=== PATIENT | female | born 1995 | race Caucasian/White ===

== ENCOUNTER 2019-01-13 17:39 | Emergency (ER) | payer OTHER ==
--- NOTE | 2019-01-13 17:58 | EDPHY ---
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 She describes laying in her bed , hyperventilating, carpal pedal spasms. No loss of consciousness. No fall. No trauma. She subsequently told her boss at work about this, he requested a note stating that she is able to go back to work. She requests a note stating that she had a panic attack and did not have a seizure 5 days ago. She is currently feeling well. She has no complaints of pain or discomfort. PHYSICAL EXAM (Prior to examination, patient consented to physical exam, hands were washed and my usual and customary physical exam procedures followed) 1) GENERAL: Well-developed, well-nourished, alert and oriented. Appears to be in no acute distress. 2) HEAD: Normocephalic 3) HEENT: sclera anicteric 4) LUNGS: Breathing comfortably. [ Constitutional: Initial Vital Signs Temperature (C) 37 C 01/13/19 18:10 Heart Rate 111 H 01/13/19 18:10 Respiratory Rate 16 01/13/19 18:10 Blood Pressure 151/97 H 01/13/19 18:10 O2 Sat (%) 97 01/13/19 18:10 O2 Delivery Mode Room Air MDM/Departure - [facility] ED Course/Re-evaluation: 5:58 p.m.: The patient has requested I write a note and/or requested whether she could record me saying that she had a panic attack back and did not have a seizure 5 days ago. I informed her that I am unable to attest to specifically what happened 5 days ago. I am unable to attest to whether she had a panic attack, seizure or other circumstance. She informs me at this time that in no way does she feels she is able to complete her activities of employment without impairment. She would like to return to work. He has been given a note stating that she may return to work tomorrow. I specifically informed her, with nurse Kaila Robledo at bedside, that in no way can I attest as to what happened to her 5 days ago and that in no way, can I attest that she did not have a seizure 5 days ago. Care of patient under supervision of secondary supervising physician Dr Hammonds - Depart Disposition: Home, Routine, Self-Care Clinical Impression: Return to work evaluation Condition: Good Instructions: Return to Work Instructions (ED) Stand Alone Forms: Work Excuse Referrals: [facility],. [Clinic] - As per Instructions
[2019-01-13 18:12] VITALS: BP 151/97
== END 2019-01-13 18:05 | disposition home or self-care (01) ==
DX: Z00.8 Encounter for other general examination (principal); F41.0 Panic disorder [episodic paroxysmal anxiety]

== ENCOUNTER 2019-05-03 13:20 | Emergency (ER) | payer MEDICAID | END 2019-05-03 17:20 | disposition home or self-care (01) ==